=== PATIENT | male | born 1965 | race African-American/Black ===

== ENCOUNTER 2024-06-11 14:54 | Inpatient (IN) | payer BC, OTHER ==
[2024-06-11] MEDS: SODIUM CHLORIDE 0.9% 1,000 ML IV ONE (15:37)
[2024-06-11] MEDS: PANTOPRAZOLE 40 MG/10 ML VIAL IVP STA (15:37)
[2024-06-11 15:53] LABS: Anisocytosis Moderate; Basophils % (A) 0 %; Eosinophils # (A) 0.1 k/uL (0-0.7); Eosinophils % (A) 1 %; HCT 37.7 % (39.0-53.0); HGB 11.5 gm/dL (13.0-17.5); Hypochromasia Marked; Lymphocytes # (A) 1.9 k/uL (1.0-4.8); Lymphocytes % (A) 15 %; MCH 21.6 pg (25.0-35.0); MCHC 30.5 g/dL (31.0-37.0); MCV 70.7 fL (80.0-100.0); Mean Platelet Volume 7.8; Microcytosis Marked; Monocytes # (A) 0.5 k/uL (0-1.0); Monocytes % (A) 4 %; Neutrophils # (A) 10.2 k/uL (1.3-7.7); Neutrophils % (A) 79 %; Platelet Count 477 k/uL (150-450); RBC 5.33 m/uL (4.30-5.90); RDW 22.5 % (11.5-15.5)
[2024-06-11 16:04] LABS: Partial Thromboplastin Time 25.2 sec (22.0-30.0); Prothrombin Time 10.6 sec (10.0-12.5)
[2024-06-11 16:08] LABS: ALT 26 U/L (4-49); African American GFR (CKD) >90 (>60 ml/min/1.73 sqM); Albumin 4.7 g/dL (3.5-5.0); Anion Gap 13 mmol/L; Blood Urea Nitrogen 8 mg/dL (9-20); Calcium 10.1 mg/dL (8.4-10.2); Carbon Dioxide 19 mmol/L (22-30); Chloride 103 mmol/L (98-107); Glucose 105 mg/dL (74-99); Lipase 112 U/L (23-300); Non-African American GFR(CKD) >90 (>60 ml/min/1.73 sqM); Sodium 135 mmol/L (137-145); Total Bilirubin 2.2 mg/dL (0.2-1.3); Total Protein 7.8 g/dL (6.3-8.2)
[2024-06-11 16:11] LABS: AST 55 U/L (17-59); Alkaline Phosphatase 66 U/L (38-126); Magnesium 1.8 mg/dL (1.6-2.3); Potassium 4.4 mmol/L (3.5-5.1)
--- NOTE | 2024-06-11 16:19 | ED ---
GI Bleed HPI - General Chief complaint: GI Bleed Stated complaint: Vomiting/Diarrhea blood Time Seen by Provider: 06/11/24 15:10 Source: patient Mode of arrival: wheelchair Limitations: no limitations - History of Present Illness Initial comments: 59-year-old male with past medical history of A-fib, coronary disease with stent placement, hypertension, GERD who presents to the emergency department reporting vomiting of blood. States that last night he started having pain in his abdomen and throat. He believes he was "poisoned from his sfhlyug-ol-jja" as he ate a piece of pizza that his smkoeck-oo-weo had bought. He began vomiting and having diarrhea which then turned bloody. Admits that the blood in his vomit and stool was bright in coloration. He denies history of GI bleeding. Does not take any blood thinners. Patient does not take any medications. States he is supposed to be on prescribed medications but has not taken them in 2 years. His primary care doctor is in [place]. He did not take anything to alleviate his symptoms. He has never had a colonoscopy. Patient also admits to chest pain. No fevers. No history of ulcers. Patient denies alcohol use. No other alleviating, precipitating modifying factors - Related Data Home Medications Medication Instructions Recorded Confirmed No Known Home Medications 06/11/24 06/11/24 Allergies Allergy/AdvReac Type Severity Reaction Status Date / Time No Known Allergies Allergy Verified 06/11/24 16:07 Review of Systems ROS Statement: Those systems with pertinent positive or pertinent negative responses have been documented in the HPI. ROS Other: All systems not noted in ROS Statement are negative. Past Medical History Past Medical History: Chest Pain / Angina, GERD/Reflux, Hypertension History of Any Multi-Drug Resistant Organisms: None Reported Past Surgical History: No Surgical Hx Reported Past Psychological History: No Psychological Hx Reported Past Alcohol Use History: Daily Past Drug Use History: Marijuana General Exam Limitations: no limitations General appearance: alert, anxious, in distress Head exam: Present: atraumatic, normocephalic, normal inspection Eye exam: Present: normal appearance, PERRL, EOMI. Absent: scleral icterus, conjunctival injection, periorbital swelling ENT exam: Present: normal exam, mucous membranes moist Neck exam: Present: normal inspection. Absent: tenderness, meningismus, lymphadenopathy Respiratory exam: Present: normal lung sounds bilaterally. Absent: respiratory distress, wheezes, rales, rhonchi, stridor Cardiovascular Exam: Present: normal rhythm, tachycardia, normal heart sounds. Absent: systolic murmur, diastolic murmur, rubs, gallop, clicks GI/Abdominal exam: Present: soft, tenderness (Generalized), normal bowel sounds. Absent: distended, guarding, rebound, rigid Extremities exam: Present: normal inspection, full ROM, normal capillary refill. Absent: tenderness, pedal edema, joint swelling, calf tenderness Back exam: Present: normal inspection Neurological exam: Present: alert, oriented X3, CN II-XII intact Psychiatric exam: Present: anxious Skin exam: Present: warm, dry, intact, normal color. Absent: rash Course Vital Signs 06/11/24 06/11/24 06/11/24 14:55 14:57 16:57 Temperature 97.7 F Pulse Rate 108 H 73 68 Respiratory 30 H 26 H 16 Rate Blood Pressure 139/89 160/85 149/60 O2 Sat by Pulse 98 99 98 Oximetry 06/11/24 06/11/24 06/11/24 18:00 21:27 22:00 Temperature 98.1 F Pulse Rate 90 79 80 Respiratory 16 16 20 Rate Blood Pressure 140/83 135/94 138/71 O2 Sat by Pulse 99 98 99 Oximetry Medical Decision Making - Medical Decision Making Was pt. sent in by a medical professional or institution (SUSAN Davis, TEMPORARY OFFICE ASSISTANT, urgent care, hospital, or jail...) When possible be specific @ -No Did you speak to anyone other than the patient for history (EMS, parent, family, police, friend...)? What history was obtained from this source @ -No Did you review nursing and triage notes (agree or disagree)? Why? @ -I reviewed and agree with nursing and triage notes Were old charts reviewed (outside hosp., previous admission, EMS record, old EKG, old radiological studies, urgent care reports/EKG's, jail records)? Report findings @ -No old charts were reviewed Differential Diagnosis (chest pain, altered mental status, abdominal pain women, abdominal pain men, vaginal bleeding, weakness, fever, dyspnea, syncope, headache, dizziness, GI bleed, back pain, seizure, CVA, palpatations, mental health, musculoskeletal)? @ -Differential GI Bleed: Esophageal varices, aortoenteric fistula, Halie-Arreola, gastritis, peptic ulcer disease, diverticulosis, inflammatory bowel disease, hemorrhoids, fissure, colitis, malignancy, Meckel's diverticulum, this is not meant to be an all- inclusive list. EKG interpreted by me (3pts min.). @ -Yes and demonstrates sinus rhythm with a rate of 95. Parable 150. QRS 137. QTc of 433. Right bundle branch block. No acute ST segment elevations X-rays interpreted by me (1pt min.). @ -None done CT interpreted by me (1pt min.). @ -Yes and demonstrates colitis U/S interpreted by me (1pt. min.). @ -None done What testing was considered but not performed or refused? (CT, X-rays, U/S, labs)? Why? @ -None What meds were considered but not given or refused? Why? @ -None Did you discuss the management of the patient with other professionals (professionals i.e. , PA, TEMPORARY OFFICE ASSISTANT, lab, RT, psych nurse, social work msw, tip banding machine operator, teacher, asset protection officer, manager of case)? Give summary @ -Spoke with Dr. Yanez who presents to the ED and evaluate the patient. He is agreeable to consulting on the patient as we do not have GI services Was smoking cessation discussed for >3mins.? @ -No Was critical care preformed (if so, how long)? @ -No Were there social determinants of health that impacted care today? How? (Homelessness, low income, unemployed, alcoholism, drug addiction, transportation, low edu. Level, literacy, decrease access to med. care, senior care, rehab)? @ -Patient has not seen a physician in 2 years Was there de-escalation of care discussed even if they declined (Discuss DNR or withdrawal of care, Hospice)? DNR status @ -No What co-morbidities impacted this encounter? (DM, HTN, Smoking, COPD, CAD, Cancer, CVA, ARF, Chemo, Hep., AIDS, mental health diagnosis, sleep apnea, morbid obesity)? @ -Coronary disease Was patient admitted / discharged? Hospital course, mention meds given and ro [place], prescriptions, significant lab abnormalities, going to OR and other pertinent info. @ -Upon arrival patient seen and evaluated in room 1. Thorough history and physical exam was performed. Rectal exam was performed and shows a scant amount of brown stool. IV was established. Laboratory studies are conducted. Patient does go for CT which shows colitis. Patient is initiated on antibiotics. I spoke with Dr. Yanez who does see the patient in the ER. He was agreeable to consult on the patient as we do not have GI services. Patient does not feel improved. I spoke with Dr. Wadsworth for the admission Undiagnosed new problem with uncertain prognosis? @ -No Drug Therapy requiring intensive monitoring for toxicity (Heparin, Nitro, Insulin, Cardizem)? @ -No Were any procedures done? @ -No Diagnosis/symptom? @ -Acute hematochezia, acute hematemesis, acute colitis Acute, or Chronic, or Acute on Chronic? @ -Acute Uncomplicated (without systemic symptoms) or Complicated (systemic symptoms)? @ -Complicated Side effects of treatment? @ -No Exacerbation, Progression, or Severe Exacerbation? @ -No Poses a threat to life or bodily function? How? (Chest pain, USA, AL, pneumonia, PE, COPD, DKA, ARF, appy, cholecystitis, CVA, Diverticulitis, Homicidal, Suicidal, threat to staff... and all critical care pts) @ -No - Lab Data Result diagrams: 06/12/24 03:55 06/12/24 03:55 Lab Results 06/11/24 06/11/24 06/11/24 Range/Units 15:15 15:17 15:24 WBC 13.0 H (3.8-10.6) k/uL RBC 5.33 (4.30-5.90) m/uL Hgb 11.5 L (13.0-17.5) gm/dL Hct 37.7 L (39.0-53.0) % MCV 70.7 L (80.0-100.0) fL MCH 21.6 L (25.0-35.0) pg MCHC 30.5 L (31.0-37.0) g/dL RDW 22.5 H (11.5-15.5) % Plt Count 477 H (150-450) k/uL MPV 7.8 Neutrophils % 79 % Lymphocytes % 15 % Monocytes % 4 % Eosinophils % 1 % Basophils % 0 % Neutrophils # 10.2 H (1.3-7.7) k/uL Lymphocytes # 1.9 (1.0-4.8) k/uL Monocytes # 0.5 (0-1.0) k/uL Eosinophils # 0.1 (0-0.7) k/uL Basophils # 0.0 (0-0.2) k/uL Hypochromasia Marked Anisocytosis Moderate Microcytosis Marked PT (10.0-12.5) sec INR (<1.2) APTT (22.0-30.0) sec Sodium (137-145) mmol/L Potassium (3.5-5.1) mmol/L Chloride (98-107) mmol/L Carbon Dioxide (22-30) mmol/L Anion Gap mmol/L BUN (9-20) mg/dL Creatinine (0.66-1.25) mg/dL Est GFR (CKD-EPI)AfAm (>60 ml/min/1.73 sqM) Est GFR (CKD-EPI)NonAf (>60 ml/min/1.73 sqM) Glucose (74-99) mg/dL Lactic Ac Sepsis Rflx Plasma Lactic Acid Suresh (0.7-2.0) mmol/L Calcium (8.4-10.2) mg/dL Magnesium (1.6-2.3) mg/dL Total Bilirubin (0.2-1.3) mg/dL AST (17-59) U/L ALT (4-49) U/L Alkaline Phosphatase (38-126) U/L Troponin I (0.000-0.034) ng/mL Total Protein (6.3-8.2) g/dL Albumin (3.5-5.0) g/dL Lipase (23-300) U/L Stool Occult Blood (Negative) Blood Type A Positive Blood Type Confirm A Positive Blood Type Recheck No Previous Record Bld Type Recheck Status CABO Indicated Antibody Screen NEGATIVE Spec Expiration Date 06/14/2024 - 231406/11/24 06/11/24 06/11/24 Range/Units 15:24 15:24 15:24 WBC (3.8-10.6) k/uL RBC (4.30-5.90) m/uL Hgb (13.0-17.5) gm/dL Hct (39.0-53.0) % MCV (80.0-100.0) fL MCH (25.0-35.0) pg MCHC (31.0-37.0) g/dL RDW (11.5-15.5) % Plt Count (150-450) k/uL MPV Neutrophils % % Lymphocytes % % Monocytes % % Eosinophils % % Basophils % % Neutrophils # (1.3-7.7) k/uL Lymphocytes # (1.0-4.8) k/uL Monocytes # (0-1.0) k/uL Eosinophils # (0-0.7) k/uL Basophils # (0-0.2) k/uL Hypochromasia Anisocytosis Microcytosis PT 10.6 (10.0-12.5) sec INR 1.0 (<1.2) APTT 25.2 (22.0-30.0) sec Sodium 135 L (137-145) mmol/L Potassium 4.4 (3.5-5.1) mmol/L Chloride 103 (98-107) mmol/L Carbon Dioxide 19 L (22-30) mmol/L Anion Gap 13 mmol/L BUN 8 L (9-20) mg/dL Creatinine 0.72 (0.66-1.25) mg/dL Est GFR (CKD-EPI)AfAm >90 (>60 ml/min/1.73 sqM) Est GFR (CKD-EPI)NonAf >90 (>60 ml/min/1.73 sqM) Glucose 105 H (74-99) mg/dL Lactic Ac Sepsis Rflx Plasma Lactic Acid Suresh 2.4 H* (0.7-2.0) mmol/L Calcium 10.1 (8.4-10.2) mg/dL Magnesium 1.8 (1.6-2.3) mg/dL Total Bilirubin 2.2 H (0.2-1.3) mg/dL AST 55 (17-59) U/L ALT 26 (4-49) U/L Alkaline Phosphatase 66 (38-126) U/L Troponin I (0.000-0.034) ng/mL Total Protein 7.8 (6.3-8.2) g/dL Albumin 4.7 (3.5-5.0) g/dL Lipase 112 (23-300) U/L Stool Occult Blood (Negative) Blood Type Blood Type Confirm Blood Type Recheck Bld Type Recheck Status Antibody Screen Spec Expiration Date 06/11/24 06/11/24 06/11/24 Range/Units 15:24 16:10 17:24 WBC (3.8-10.6) k/uL RBC (4.30-5.90) m/uL Hgb (13.0-17.5) gm/dL Hct (39.0-53.0) % MCV (80.0-100.0) fL MCH (25.0-35.0) pg MCHC (31.0-37.0) g/dL RDW (11.5-15.5) % Plt Count (150-450) k/uL MPV Neutrophils % % Lymphocytes % % Monocytes % % Eosinophils % % Basophils % % Neutrophils # (1.3-7.7) k/uL Lymphocytes # (1.0-4.8) k/uL Monocytes # (0-1.0) k/uL Eosinophils # (0-0.7) k/uL Basophils # (0-0.2) k/uL Hypochromasia Anisocytosis Microcytosis PT (10.0-12.5) sec INR (<1.2) APTT (22.0-30.0) sec Sodium (137-145) mmol/L Potassium (3.5-5.1) mmol/L Chloride (98-107) mmol/L Carbon Dioxide (22-30) mmol/L Anion Gap mmol/L BUN (9-20) mg/dL Creatinine (0.66-1.25) mg/dL Est GFR (CKD-EPI)AfAm (>60 ml/min/1.73 sqM) Est GFR (CKD-EPI)NonAf (>60 ml/min/1.73 sqM) Glucose (74-99) mg/dL Lactic Ac Sepsis Rflx Y Plasma Lactic Acid Suresh (0.7-2.0) mmol/L Calcium (8.4-10.2) mg/dL Magnesium (1.6-2.3) mg/dL Total Bilirubin (0.2-1.3) mg/dL AST (17-59) U/L ALT (4-49) U/L Alkaline Phosphatase (38-126) U/L Troponin I <0.012 (0.000-0.034) ng/mL Total Protein (6.3-8.2) g/dL Albumin (3.5-5.0) g/dL Lipase (23-300) U/L Stool Occult Blood Positive (Negative) Blood Type Blood Type Confirm Blood Type Recheck Bld Type Recheck Status Antibody Screen Spec Expiration Date Disposition Clinical Impression: GI bleed, Hematochezia, Hematemesis Disposition: [facility]ITTED [facility] Condition: Stable Is patient prescribed a controlled substance at d/c from ED?: No Decision to Admit Reason: Admit from EC Decision Date: 06/11/24 Decision Time: 20:53
[2024-06-11] MEDS: ONDANSETRON 4 MG/2 ML VIAL IVP STA (17:21)
[2024-06-11] MEDS: MORPHINE SULFATE 4 MG/ML SYRINGE IVP STA (18:02)
--- NOTE | 2024-06-11 18:12 | CT ---
EXAMINATION TYPE: CT ChestAbdPelvis w con DATE OF EXAM: 06/11/2024 INDICATION: vomiting stool/blood starting this morning COMPARISON: 04/28/2014 CT abdomen and pelvis CT DLP: 762.3 mGycm CONTRAST: Performed without Oral Contrast and with IV Contrast, patient injected with 100 ml mL of Isovue 300. TECHNIQUE: Axial images at 5 mm thick sections. Reconstructed images in the coronal plane. Delayed images through the kidneys. FINDINGS: CT CHEST: Portion of the thyroid visualized is normal. No suspicious lung nodules or focal infiltrates are present. No enlarged mediastinal or hilar adenopathy is evident. The ascending aorta diameter at the level of the main pulmonary artery is 3.8 cm. The main pulmonary artery diameter at the bifurcation is 2.9 cm. Some mild coronary artery calcification may be present . CT ABDOMEN: Liver: Normal Spleen: Normal Pancreas: Normal Adrenal glands: The adrenal glands are normal. Gallbladder: Normal Kidneys: No masses are evident. No hydronephrosis is present. No cysts are present. Punctate renal calcification is in the mid left kidney without obstruction. Aorta: Vascular calcification is within the aorta. Inferior vena cava: Normal. CT PELVIS: Loops of bowel within the abdomen and pelvis are normal. Fluid-filled small bowel loops are withi n the lower pelvis. X line there is some mild thickening through the splenic flexure to the mid desce nding colon. Colitis is likely present. Appendix: Normal as visualized. Urinary bladder: Normal. Genitourinary structures: Prostate is prominent Osseous structures: No suspicious lytic or sclerotic lesions. IMPRESSION: 1. Some wall thickening and mild colitis within the splenic flexure to the mid descending colon. 2. Mild ileus may be within the pelvis. 3. Nonobstructing punctate left renal stone
--- NOTE | 2024-06-11 20:21 | P.GSCN ---
History of Present Illness Consult date: 06/11/24 Reason for Consult: GI bleed History of present illness: 59-year-old male came to the hospital with complaints of vomiting blood and diarrhea with blood in it. No history of similar events in the past. Denies ulcer disease. Admits to history of alcohol abuse. Not currently he states. Patient has not had previous endoscopy. No active bleeding since ER visit. Describes history of GERD. Hemoglobin 11.5, white blood cell count 13, lactic acid slightly elevated. Patient was heme positive with no blood on rectal exam per ER staff. CAT scan was performed showing some thickening of the left colon consistent with possible mild colitis. Patient describing mild abdominal discomfort. Review of Systems The patient denies any acute changes in vision or hearing, no dysphagia or odynophagia, no chest pain or shortness of breath, no dysuria or hematuria, no headache, no runny nose, no unexplained weight loss Past Medical History Past Medical History: Chest Pain / Angina, GERD/Reflux, Hypertension History of Any Multi-Drug Resistant Organisms: None Reported Past Surgical History: No Surgical Hx Reported Past Psychological History: No Psychological Hx Reported Past Alcohol Use History: Daily Past Drug Use History: Marijuana Medications and Allergies Home Medications Medication Instructions Recorded Confirmed Type No Known Home Medications 06/11/24 06/11/24 History Allergies Allergy/AdvReac Type Severity Reaction Status Date / Time No Known Allergies Allergy Verified 06/11/24 16:07 Surgical - Exam Vital Signs Temp Pulse Resp BP Pulse Ox 97.7 F 108 H 30 H 139/89 98 06/11/24 14:55 06/11/24 14:55 06/11/24 14:55 06/11/24 14:55 06/11/24 14:55 Physical exam: General: Well-developed, well-nourished HEENT: Normocephalic, sclerae nonicteric Abdomen: Mild diffuse tenderness nondistended Extremities: No edema Neuro: Alert and oriented Results - Labs 06/11/24 15:24 06/11/24 15:24 Abnormal Lab Results - Last 24 Hours (Table) 06/11/24 06/11/24 06/11/24 Range/Units 15:24 15:24 15:24 WBC 13.0 H (3.8-10.6) k/uL Hgb 11.5 L (13.0-17.5) gm/dL Hct 37.7 L (39.0-53.0) % MCV 70.7 L (80.0-100.0) fL MCH 21.6 L (25.0-35.0) pg MCHC 30.5 L (31.0-37.0) g/dL RDW 22.5 H (11.5-15.5) % Plt Count 477 H (150-450) k/uL Neutrophils # 10.2 H (1.3-7.7) k/uL Sodium 135 L (137-145) mmol/L Carbon Dioxide 19 L (22-30) mmol/L BUN 8 L (9-20) mg/dL Glucose 105 H (74-99) mg/dL Plasma Lactic Acid Suresh 2.4 H* (0.7-2.0) mmol/L Total Bilirubin 2.2 H (0.2-1.3) mg/dL Diabetes panel 06/11/24 Range/Units 15:24 Sodium 135 L (137-145) mmol/L Potassium 4.4 (3.5-5.1) mmol/L Chloride 103 (98-107) mmol/L Carbon Dioxide 19 L (22-30) mmol/L BUN 8 L (9-20) mg/dL Creatinine 0.72 (0.66-1.25) mg/dL Glucose 105 H (74-99) mg/dL Calcium 10.1 (8.4-10.2) mg/dL AST 55 (17-59) U/L ALT 26 (4-49) U/L Alkaline Phosphatase 66 (38-126) U/L Total Protein 7.8 (6.3-8.2) g/dL Albumin 4.7 (3.5-5.0) g/dL Calcium panel 06/11/24 Range/Units 15:24 Calcium 10.1 (8.4-10.2) mg/dL Albumin 4.7 (3.5-5.0) g/dL Pituitary panel 06/11/24 Range/Units 15:24 Sodium 135 L (137-145) mmol/L Potassium 4.4 (3.5-5.1) mmol/L Chloride 103 (98-107) mmol/L Carbon Dioxide 19 L (22-30) mmol/L BUN 8 L (9-20) mg/dL Creatinine 0.72 (0.66-1.25) mg/dL Glucose 105 H (74-99) mg/dL Calcium 10.1 (8.4-10.2) mg/dL Adrenal panel 06/11/24 Range/Units 15:24 Sodium 135 L (137-145) mmol/L Potassium 4.4 (3.5-5.1) mmol/L Chloride 103 (98-107) mmol/L Carbon Dioxide 19 L (22-30) mmol/L BUN 8 L (9-20) mg/dL Creatinine 0.72 (0.66-1.25) mg/dL Glucose 105 H (74-99) mg/dL Calcium 10.1 (8.4-10.2) mg/dL Total Bilirubin 2.2 H (0.2-1.3) mg/dL AST 55 (17-59) U/L ALT 26 (4-49) U/L Alkaline Phosphatase 66 (38-126) U/L Total Protein 7.8 (6.3-8.2) g/dL Albumin 4.7 (3.5-5.0) g/dL Assessment and Plan (1) GI bleed Narrative/Plan: 59-year-old male with presentation of upper and lower GI bleed. Will proceed with upper endoscopy tomorrow. CAT scan findings may represent ischemic colitis. If no active ulcer disease seen and bleeding rectally diminishes would plan outpatient colonoscopy. Begin antibiotics for mild colitis. Recheck labs tomorrow. Keep n.p.o. for now. Current Visit: Yes Status: Acute Code(s): K92.2 - GASTROINTESTINAL HEMORRHAGE, UNSPECIFIED SNOMED Code(s): 96160173
[2024-06-11] MEDS ORDERED: NALOXONE 0.4 MG/ML 1 ML VIAL IV PRN (20:53)
[2024-06-11] MEDS ORDERED: ONDANSETRON 4 MG/2 ML VIAL IVP PRN (20:53)
[2024-06-11] MEDS ORDERED: ACETAMINOPHEN TAB 325 MG TAB PO PRN (20:53)
[2024-06-11] MEDS: LEVOFLOXACIN 500MG-D5W PMX 500 MG in DEXTROSE/WATER 1 100ML.BAG IVPB STA (22:32)
--- NOTE | 2024-06-11 23:46 | P.HPIM ---
History of Present Illness H&P Date: 06/11/24 Chief Complaint: GI bleed Patient is a 59-year-old male with atrial fibrillation (not on anticoagulant), CAD with stent placement, hypertension, GERD presents to the emergency department with complaint of hematemesis and blood in the stool. He states that this happened last night where he suddenly woke up with excruciating abdominal pain followed by multiple episodes of vomiting blood shortly followed by multiple bowel movements with blood present. He describes the vomit as a light-colored red, and the stool as a bright red appearance. Patient admits he was diaphoretic and he rated his abdominal pain a 10/10 across his lower abd. He denies any history of abdominal surgery, endoscopy . patient claims he had recent colonoscopy within past 2 years, and polyps were found He denies any history of peptic ulcer disease or chronic NSAID use. He did take one ibuprofen last night for headache. He states he has not taken any of his prescribed medications within the past 2 years.(he is supposed to be taking plavix for CAD and PAD) He did not take anything to alleviate the symptoms. States he had chest pain following episode, however denies any current chest pain. Denies any cough, fever, syncope. He now reports having bloody bowel movement in the ED minutes before my arrival for evaluation Review of systems: Pertinent positives and negatives as discussed in HPI, a complete review of systems was performed and all other systems are negative. Social history: Tobacco: Former smoker of 40 years 2 pack a day Alcohol: Drinks every day says he quit recently Recreational drugs: Marijuana Travel: No recent travel Occupation: Did not obtain Physical examination: Vitals: T98.1 F, MO 80, RR 20, BP 138/71, O2 sat 99% on room air General: non toxic, moderate distress, appears at stated age, normal weight Derm: no unusual rashes/lesions, warm Head: atraumatic, normocephalic, symmetric Eyes: EOMI, anicteric sclera, pupils equal round reactive to light ENT: Nose and ears atraumatic Mouth: no lip lesion, mucus membranes moist Cardiovascular: S1S2 reg, no murmur, positive dorsalis pedis pulse bilateral, no edema Lungs: CTA bilateral, no rhonchi, no rales, no accessory muscle use Abdominal: soft, diffusely tender to palpation, +ve Rebound tenderness Bowel sounds positive no guarding Ext: muscle strength 5 out of 5 in all 4 extremities grossly, no gross muscle atrophy, no contractures, Neuro: CN II-XI grossly intact, no gross focal neuro deficits Psych: Alert and oriented to person, place, and time Assessment/Plan: Patient is a 59-year-old male with atrial fibrillation (not on anticoagulant), CAD with stent placement not taking his plavix for 2 years now, hypertension, GERD presents to the emergency department with complaint of hematemesis and blood in the stool. ED documentation reviewed and case discussed with ED provider. []The patient is admitted with an anticipated greater than than 2 mi dnight stay for evaluation of GI bleed. #. Gastrointestinal bleed Likely lower GI bleed with suspected ischemic colitis versus upper GI bleed Patient with crampy abdominal pain CBC showed microcytic anemia likely due to acute on chronic blood loss, Hgb 11.5 MCV 70.7 BUN:Cr < 30 making upper GI bleed less likely Coagulation studies unremarkable Lactic acid downtrending 2.4 => 1.0 Urine drug screen ordered Stool occult blood positive CT abdomen displayed wall thickening and mild colitis within the splenic flexure to mid descending colon, mild ileus may be within the pelvis Pain management: Acetaminophen tab 650 mg PO q6hr PRN, Dilaudid 0.5 mg IVP q3hr PRN IV Protonix 40 mg IVP daily, s/p Protonix one time 80 mg IVP Zofran 4 mg IVP every q8hr PRN for nausea/vomiting Monitor bowel movement for blood Keep patient NPO Follow-up labs in the morning Surgery consulted, note reviewed. Plan for upper endoscopy tomorrow IVF hydration with normal saline 0.9% s/p 1 L bolus , continue with 130cc per hour CBC q6hr transfuse for hgb <7 general surgery consult , recommended starting antibiotics, continue with [id number] mg IVPB daily and flagyl 500 mg IVPB q 8 hr INR 1.0 #. Microcytic anemia Hgb 11.5, MCV 70.7 Likely due to acute blood loss Transfuse if Hgb is <7 Continue to monitor CBC #. History of atrial fibrillation (not on anticoagulant) Monitor on telemetry No known home medications Consult cardiology #. Leukocytosis, neutrophilic predominant with no left shift Suspected colitis per CT abdomen Given prophylactic IV metronidazole 500 mg by ED Continue to monitor CBC #. Chronic hypertension No known home medications Monitor blood pressure per floor protocol #. GERD IV Protonix 40 mg IVP daily #. Thrombocytosis Platelet 477 Likely due to chronic alcohol abuse #. History of chronic alcohol abuse Former everyday drinker, states last drink was years ago Will monitor for any withdrawal symptoms #. Hyperbilirubinemia Likely due to previous alcohol use DVT prophylaxis: mechanical SCDs due to GI bleeding F: NS 0.9 % at 130 cc per hour E: Replete electrolytes as needed N: NPO A: Patient ambulatory, fall precaution CODE STATUS: Full code Past Medical History Past Medical History: Chest Pain / Angina, GERD/Reflux, Hypertension History of Any Multi-Drug Resistant Organisms: None Reported Past Surgical History: No Surgical Hx Reported Past Psychological History: No Psychological Hx Reported Past Alcohol Use History: Daily Past Drug Use History: Marijuana Medications and Allergies Home Medications Medication Instructions Recorded Confirmed Type No Known Home Medications 06/11/24 06/11/24 History Allergies Allergy/AdvReac Type Severity Reaction Status Date / Time No Known Allergies Allergy Verified 06/11/24 16:07 Physical Exam Vitals: Vital Signs Temp Pulse Resp BP Pulse Ox 06/11/24 21:27 98.1 F 79 16 135/94 98 06/11/24 18:00 90 16 140/83 99 06/11/24 16:57 68 16 149/60 98 06/11/24 14:57 73 26 H 160/85 99 06/11/24 14:55 97.7 F 108 H 30 H 139/89 98 Intake and Output 06/11/24 06/11/24 06/11/24 06:59 14:59 22:59 Other: Weight 68.039 kg Results CBC & Chem 7: 06/11/24 15:24 06/11/24 15:24 Labs: Abnormal Lab Results - Last 24 Hours (Table) 06/11/24 06/11/24 06/11/24 Range/Units 15:24 15:24 15:24 WBC 13.0 H (3.8-10.6) k/uL Hgb 11.5 L (13.0-17.5) gm/dL Hct 37.7 L (39.0-53.0) % MCV 70.7 L (80.0-100.0) fL MCH 21.6 L (25.0-35.0) pg MCHC 30.5 L (31.0-37.0) g/dL RDW 22.5 H (11.5-15.5) % Plt Count 477 H (150-450) k/uL Neutrophils # 10.2 H (1.3-7.7) k/uL Sodium 135 L (137-145) mmol/L Carbon Dioxide 19 L (22-30) mmol/L BUN 8 L (9-20) mg/dL Glucose 105 H (74-99) mg/dL Plasma Lactic Acid Suresh 2.4 H* (0.7-2.0) mmol/L Total Bilirubin 2.2 H (0.2-1.3) mg/dL Assessment and Plan Assessment: I saw and Examined the patient independently discussed the case with the resident and agree with documented H&P and assessment and plan which was amended as needed in blue font
[2024-06-11] MEDS: HYDROmorphone 0.5 MG/0.5 ML SYRINGE IVP PRN (23:53)
[2024-06-11] MEDS: metroNIDAZOLE-NS PMX 500 MG in SALINE 1 100ML.BAG IVPB SCH (23:58)
[2024-06-12] MEDS: SODIUM CHLORIDE 0.9% 1,000 ML IV SCH (00:05)
[2024-06-12 00:20] LABS: Amphetamine Screen,Urine Detected (NotDetected); Barbiturate Screen,Urine Not Detected (NotDetected); Benzodiazepines Screen,Urine Not Detected (NotDetected); Cocaine Screen,Urine Not Detected (NotDetected); Methadone Screen, Urine Not Detected (NotDetected); Opiate Screen,Urine Detected (NotDetected); Oxycodone Screen, Urine Not Detected (NotDetected); Phencyclidine Screen,Urine Not Detected (NotDetected); Tricyclic Antidepressant,Urine Not Detected (NotDetected); Urn Cannabinoid Scrn Detected (NotDetected)
[2024-06-12 00:55] LABS: Anisocytosis Moderate; HCT 33.6 % (39.0-53.0); HGB 10.2 gm/dL (13.0-17.5); Hypochromasia Marked; MCH 22.1 pg (25.0-35.0); MCHC 30.4 g/dL (31.0-37.0); MCV 72.4 fL (80.0-100.0); Mean Platelet Volume 8.2; Microcytosis Marked; Platelet Count 450 k/uL (150-450); RBC 4.64 m/uL (4.30-5.90); RDW 22.7 % (11.5-15.5); WBC 11.7 k/uL (3.8-10.6)
[2024-06-12 06:50] LABS: Anisocytosis Moderate; Basophils % (A) 0 %; Eosinophils # (A) 0.2 k/uL (0-0.7); Eosinophils % (A) 2 %; HCT 34.4 % (39.0-53.0); HGB 10.2 gm/dL (13.0-17.5); Hypochromasia Marked; Lymphocytes # (A) 2.2 k/uL (1.0-4.8); Lymphocytes % (A) 20 %; MCH 21.9 pg (25.0-35.0); MCHC 29.7 g/dL (31.0-37.0); MCV 73.8 fL (80.0-100.0); Mean Platelet Volume 9.4; Microcytosis Marked; Monocytes # (A) 0.7 k/uL (0-1.0); Monocytes % (A) 6 %; Neutrophils # (A) 7.7 k/uL (1.3-7.7); Neutrophils % (A) 71 %; Platelet Count 411 k/uL (150-450); RBC 4.66 m/uL (4.30-5.90); RDW 23.2 % (11.5-15.5); WBC 10.9 k/uL (3.8-10.6)
[2024-06-12] MEDS: PANTOPRAZOLE 40 MG/10 ML VIAL IVP SCH ×2 (08:22→22:09)
[2024-06-12 09:02] LABS: Blood Urea Nitrogen 5.6 mg/dL (9.0-27.0); Calcium 8.9 mg/dL (8.7-10.3); Carbon Dioxide 23.2 mmol/L (21.6-31.8); Chloride 105 mmol/L (96-109); Glucose 96 mg/dL (70-110); Potassium 3.7 mmol/L (3.5-5.5); Sodium 137 mmol/L (135-145)
[2024-06-12] MEDS ORDERED: PROPOFOL 10 MG/ML 20 ML VIAL IV ONE (14:28)
[2024-06-12] MEDS: IV FLUID CONTINUATION 1,000 ML IV ONE (14:30)
--- NOTE | 2024-06-12 14:42 | P.PCN ---
Date of Procedure: 06/12/24 Procedure(s) Performed: Preoperative Dx: Upper GI bleed Postoperative Dx: Mild duodenitis, mild gastritis, small hiatal hernia Procedure: EGD with Bx Anesthesia: Sedation Endoscopist: Dr. Yanez Specimens: Duodenum, antrum Endoscopic Procedure: The patient was on the endoscopy table in the left decubitus position. The Olympus gastroscope was inserted into the oropharynx and passed under direct visualization to the region of the third portion of the duodenum. From that point the scope was slowly withdrawn inspecting all surfaces carefully. There was mild duodenitis present without ulcerations or evidence of bleeding. Biopsy of the duodenum took place. Pylorus was widely patent. Stomach was inspected. Mild gastritis was present. A biopsy of the antrum took place. Retroflexion revealed a small sliding hiatal hernia measuring 1 cm. No evidence of esophageal varices or gastric varices were seen. The patient's esophagus was examined in its entirety. No inflammatory changes or neoplastic changes were seen. The patient was then taken to the recovery room in stable condition per anesthesia guidelines. Recommendations: Patient still having abdominal discomforts. Continue antibiotics. Begin full liquid diet. Will follow.
--- NOTE | 2024-06-12 16:39 | P.PN ---
Subjective Progress Note Date: 06/12/24 Subjective: Patient seen and examined at the bedside. Patient is still complaining of mild lower abdominal pain which he states is improving and states is better than how he presented to the ED. No active bleeding. Denies hemoptysis, hemoptysis, melena or bright red blood per rectum. All Systems reviewed and pertinent positives and negatives noted in HPI, all other symptoms are negative Objective: Vital signs reviewed. General: non toxic, no distress, appears at stated age, normal weight Derm: no unusual rashes/lesions, warm Head: atraumatic, normocephalic, symmetric Eyes: EOMI, no lid lag, anicteric sclera, pupils equal round reactive to light ENT: Nose and ears atraumatic Neck: No cervical lymphadenopathy, trachea midline, supple Mouth: no lip lesion, mucus membranes moist Cardiovascular: S1S2 reg, no murmur, positive dorsalis pedis pulse bilateral, no edema Lungs: CTA bilateral, no rhonchi, no rales, no accessory muscle use Abdominal: Mildly distended, mild tenderness to touch. No rebound tenderness. Bowel sounds positive. No guarding soft. Ext: muscle strength 5 out of 5 in all 4 extremities grossly, no gross muscle atrophy, no contractures, Neuro: CN II-XI grossly intact, no gross focal neuro deficits Psych: Alert, oriented, appropriate affect Data reviewed today: Labs: WBC 10.9, hemoglobin 10.2, MCV 73.8, platelet 411, sodium 137, potassium 3.7, creatinine 0.8 Images: No new imaging Assessment and Plan: 59-year-old male with A-fib (not on anticoagulant), CAD with stent placement, hypertension, GERD presented to the ER complaining of hematemesis and blood in the stool. Patient is not taking aspirin and Plavix. Patient used amphetamine and methamphetamine prior to onset of symptoms. CT abdomen reveals mild colitis within the splenic flexure. Patient admitted for GI bleeding, likely ischemic colitis. Surgery consulted. EGD is is remarkable for mild duodenitis and gastritis but no gastric ulcers or neoplastic changes with no source of bleeding noted. # Acute upper and lower gastrointestinal bleeding #Microcytic anemia likely due to acute blood loss #Suspected ischemic colitis versus infectious colitis #Leukocytosis #Duodenitis and gastritis #Lactic acidosis, resolved #Polysubstance abuse, although patient denies No active bleeding CT abdomen reveals mild colitis within the splenic flexure Surgery on board EGD is remarkable for mild duodenitis and gastritis but no gastric ulcers or neoplastic changes with no source of bleeding noted. Coagulation studies unremarkable; INR 1.0 Lactic acid downtrending 2.4 => 1.0 Urine drug screen positive for opiate, amphetamine and methamphetamine Pain management: Acetaminophen tab 650 mg PO q6hr PRN, Dilaudid 0.5 mg IVP q3hr PRN Increased IV Protonix 40 mg IVP twice daily Zofran 4 mg IVP every q8hr PRN for nausea/vomiting Monitor bowel movement for blood Keep patient NPO Follow-up labs in the morning IV normal saline at 130 cc/h Continue monitor hemoglobin; transfuse if hemoglobin less than 7 continue with levofloxacin 750 mg IVPB daily and flagyl 500 mg IVPB q 8 hr #History of atrial fibrillation (not on anticoagulant) Monitor on telemetry No known home medications #Chronic hypertension No known home medications Monitor blood pressure per floor protocol #GERD IV Protonix 40 mg IVP twice daily #Thrombocytosis, reactive, resolved #History of chronic alcohol abuse Former everyday drinker, states last drink was years ago Will monitor for any withdrawal symptom F: IV normal saline at 130 cc/h E: Replete as needed N: N.p.o. A: Ambulatory DVT ppx: Mechanical SCDs due to GI bleeding Code Status: Full code Anticipated discharge place: Pending clinical course Anticipated discharge date: Pending clinical course I have seen and evaluated the patient today. Discussed with the resident and agree with the residents finding and plan as documented in the resident's note. Changes highlighted in blue font. Objective - Vital Signs Vital signs: Vital Signs Temp 98.3 F 06/12/24 14:55 Pulse 62 06/12/24 14:55 Resp 22 06/12/24 14:55 BP 120/69 06/12/24 14:55 Pulse Ox 98 06/12/24 14:55 FiO2 Intake & Output 06/11/24 06/12/24 06/12/24 18:59 06:59 18:59 Intake Total 970 100 Output Total 1 Balance 969 100 Weight 68.039 kg 68.039 kg Intake: IV 100 Intake, IV Titration 850 Amount Levofloxacin 500Mg-D5w 100 Pmx 500 mg In Dextrose/ Water 1 100ml.bag @ 100 mls/hr IVPB ONCE STA Rx#: [id number] Sodium Chloride 0.9% 1, 650 000 ml @ 130 mls/hr IV . Q7H42M [facility] Rx#:[id number]-NS PMX 500 100 mg In Saline 1 100ml.bag @ 100 mls/hr IVPB Q8HR [facility] Rx#:[id number] Oral 120 Output: Stool 1 Other: # Voids 2 - Labs CBC & Chem 7: 06/12/24 03:55 06/12/24 03:55 Labs: Abnormal Lab Results - Last 24 Hours (Table) 06/11/24 06/11/24 06/11/24 Range/Units 15:24 15:24 15:24 WBC 13.0 H (3.8-10.6) k/uL Hgb 11.5 L (13.0-17.5) gm/dL Hct 37.7 L (39.0-53.0) % MCV 70.7 L (80.0-100.0) fL MCH 21.6 L (25.0-35.0) pg MCHC 30.5 L (31.0-37.0) g/dL RDW 22.5 H (11.5-15.5) % Plt Count 477 H (150-450) k/uL Neutrophils # 10.2 H (1.3-7.7) k/uL Sodium 135 L (137-145) mmol/L Carbon Dioxide 19 L (22-30) mmol/L BUN 8 L (9-20) mg/dL BUN/Creatinine Ratio (12.00-20.00) Ratio Glucose 105 H (74-99) mg/dL Plasma Lactic Acid Suresh 2.4 H* (0.7-2.0) mmol/L Total Bilirubin 2.2 H (0.2-1.3) mg/dL Urine Opiates Screen (NotDetected) Ur Amphetamines Screen (NotDetected) U Methamphetamines Scrn (NotDetected) U Marijuana (THC) Screen (NotDetected) 06/11/24 06/12/24 06/12/24 Range/Units 23:47 00:35 03:55 WBC 11.7 H 10.9 H (3.8-10.6) k/uL Hgb 10.2 L 10.2 L (13.0-17.5) gm/dL Hct 33.6 L 34.4 L (39.0-53.0) % MCV 72.4 L 73.8 L (80.0-100.0) fL MCH 22.1 L 21.9 L (25.0-35.0) pg MCHC 30.4 L 29.7 L (31.0-37.0) g/dL RDW 22.7 H 23.2 H (11.5-15.5) % Plt Count (150-450) k/uL Neutrophils # (1.3-7.7) k/uL Sodium (137-145) mmol/L Carbon Dioxide (22-30) mmol/L BUN (9-20) mg/dL BUN/Creatinine Ratio (12.00-20.00) Ratio Glucose (74-99) mg/dL Plasma Lactic Acid Suresh (0.7-2.0) mmol/L Total Bilirubin (0.2-1.3) mg/dL Urine Opiates Screen Detected H (NotDetected) Ur Amphetamines Screen Detected H (NotDetected) U Methamphetamines Scrn Detected H (NotDetected) U Marijuana (THC) Screen Detected H (NotDetected) 06/12/24 Range/Units 03:55 WBC (3.8-10.6) k/uL Hgb (13.0-17.5) gm/dL Hct (39.0-53.0) % MCV (80.0-100.0) fL MCH (25.0-35.0) pg MCHC (31.0-37.0) g/dL RDW (11.5-15.5) % Plt Count (150-450) k/uL Neutrophils # (1.3-7.7) k/uL Sodium (137-145) mmol/L Carbon Dioxide (22-30) mmol/L BUN 5.6 L (9-20) mg/dL BUN/Creatinine Ratio 7.00 L (12.00-20.00) Ratio Glucose (74-99) mg/dL Plasma Lactic Acid Suresh (0.7-2.0) mmol/L Total Bilirubin (0.2-1.3) mg/dL Urine Opiates Screen (NotDetected) Ur Amphetamines Screen (NotDetected) U Methamphetamines Scrn (NotDetected) U Marijuana (THC) Screen (NotDetected)
[2024-06-12] MEDS: LEVOFLOXACIN 750MG-D5W PMX 750 MG in DEXTROSE/WATER 1 150ML.BAG IVPB SCH (16:59)
[2024-06-13 04:19] LABS: Anisocytosis Moderate; Basophils # (A) 0.1 k/uL (0-0.2); Basophils % (A) 1 %; Eosinophils # (A) 0.2 k/uL (0-0.7); Eosinophils % (A) 2 %; HCT 31.5 % (39.0-53.0); HGB 9.2 gm/dL (13.0-17.5); Hypochromasia Marked; Lymphocytes # (A) 1.9 k/uL (1.0-4.8); Lymphocytes % (A) 21 %; MCH 21.6 pg (25.0-35.0); MCHC 29.1 g/dL (31.0-37.0); MCV 74.1 fL (80.0-100.0); Mean Platelet Volume 7.9; Microcytosis Marked; Monocytes # (A) 0.6 k/uL (0-1.0); Monocytes % (A) 7 %; Neutrophils # (A) 6.1 k/uL (1.3-7.7); Neutrophils % (A) 67 %; Platelet Count 396 k/uL (150-450); RBC 4.26 m/uL (4.30-5.90); RDW 22.5 % (11.5-15.5)
[2024-06-13 04:31] LABS: African American GFR (CKD) >90 (>60 ml/min/1.73 sqM); Anion Gap 9 mmol/L; Blood Urea Nitrogen 5 mg/dL (9-20); Calcium 9.1 mg/dL (8.4-10.2); Carbon Dioxide 23 mmol/L (22-30); Chloride 104 mmol/L (98-107); Glucose 86 mg/dL (74-99); Non-African American GFR(CKD) >90 (>60 ml/min/1.73 sqM); Potassium 4.2 mmol/L (3.5-5.1); Sodium 136 mmol/L (137-145)
--- NOTE | 2024-06-13 11:38 | P.PN ---
Subjective Progress Note Date: 06/13/24 CHIEF COMPLAINT: Upper GI bleed HISTORY OF PRESENT ILLNESS: Patient status post EGD yesterday with results reporting mild duodenitis, mild gastritis and a small hiatal hernia. Biopsies were done. Patient continues to complain of pain in the left lower quadrant. He does report the pain is less than on admission. He has had no further bowel movements. Denies any nausea or vomiting. Tolerating full liquids. Has had no further bleeding. Hemoglobin is down from 10.2-9.2. Vital stable. PHYSICAL EXAM: VITAL SIGNS: Reviewed. GENERAL: no acute distress. ABDOMEN: Soft. Nondistended. tender LLQ with palpation NEUROLOGIC: Alert and oriented. Cranial nerves II through XII grossly intact. ASSESSMENT: 1. Ischemic colitis 2. Status post EGD revealing mild duodenitis, mild gastritis and small hiatal hernia 3. History of daily EtOH use PLAN: -Continue antibiotics for ischemic colitis -Continue to monitor -Continue to monitor hemoglobin -Continue to monitor for any signs or symptoms of bleeding -Continue full liquid diet -Continue IV Protonix Physician Night Clerk Auditor note has been reviewed by physician. Signing provider agrees with the documented findings, assessment, and plan of care. I have personally seen and examined the patient, reviewed the [employer] /PAs history, exam and MDM and agree with the assessment and plan as written. Based on total visit time, I have performed more than 50% of the visit. As above: Patient says his pain is improved. Tolerating full liquids. No rectal bleeding. No bowel movements. Continue full liquids for now. Continue antibiotics. Advance diet as pain improves. Objective - Vital Signs Vital signs: Vital Signs Temp 98.1 F 06/13/24 07:53 Pulse 76 06/13/24 07:53 Resp 14 06/13/24 07:53 BP 134/74 06/13/24 07:53 Pulse Ox 97 06/13/24 07:53 FiO2 Intake & Output 06/12/24 06/13/24 06/13/24 18:59 06:59 18:59 Intake Total 640 Output Total 1250 1600 Balance 640 -1250 -1600 Intake: IV 100 Oral 540 Output: Urine 1250 1600 - Labs CBC & Chem 7: 06/13/24 03:32 06/13/24 03:32 Labs: Abnormal Lab Results - Last 24 Hours (Table) 06/13/24 06/13/24 Range/Units 03:32 03:32 RBC 4.26 L (4.30-5.90) m/uL Hgb 9.2 L (13.0-17.5) gm/dL Hct 31.5 L (39.0-53.0) % MCV 74.1 L (80.0-100.0) fL MCH 21.6 L (25.0-35.0) pg MCHC 29.1 L (31.0-37.0) g/dL RDW 22.5 H (11.5-15.5) % Sodium 136 L (137-145) mmol/L BUN 5 L (9-20) mg/dL
[2024-06-13 12:28] LABS: Reticulocyte % 2.4 % (0.5-2.0)
--- NOTE | 2024-06-13 15:59 | P.PN ---
Subjective Progress Note Date: 06/13/24 Subjective: Patient seen and examined at the bedside. Patient is still complaining of mild lower abdominal pain which he states is improving and states is better than how he presented to the ED. No active bleeding. Denies hemoptysis, hemoptysis, melena or bright red blood per rectum. All Systems reviewed and pertinent positives and negatives noted in HPI, all other symptoms are negative Objective: Vital signs reviewed. General: non toxic, no distress, appears at stated age, normal weight Derm: no unusual rashes/lesions, warm Head: atraumatic, normocephalic, symmetric Eyes: EOMI, no lid lag, anicteric sclera, pupils equal round reactive to light ENT: Nose and ears atraumatic Neck: No cervical lymphadenopathy, trachea midline, supple Mouth: no lip lesion, mucus membranes moist Cardiovascular: S1S2 reg, no murmur, positive dorsalis pedis pulse bilateral, no edema Lungs: CTA bilateral, no rhonchi, no rales, no accessory muscle use Abdominal: Mildly distended, mild tenderness to touch. No rebound tenderness. Bowel sounds positive. No guarding soft. Ext: muscle strength 5 out of 5 in all 4 extremities grossly, no gross muscle atrophy, no contractures, Neuro: CN II-XI grossly intact, no gross focal neuro deficits Psych: Alert, oriented, appropriate affect Data reviewed today: Labs: WBC 9.0, hemoglobin 9.2, hematocrit 31.5, MCV 74.1, platelet count 396, reticulocyte count 2.4 Sodium 136, potassium 4.2, chloride 104, bicarb 23, BUN 5, creatinine 0.72, glucose 96, calcium 9.1 Images: No new imaging Assessment and Plan: 59-year-old male with A-fib (not on anticoagulant), CAD with stent placement, hypertension, GERD presented to the ER complaining of hematemesis and blood in the stool. Patient is not taking aspirin and Plavix. Patient used amphetamine and methamphetamine prior to onset of symptoms. CT abdomen reveals mild colitis within the splenic flexure. Patient admitted for GI bleeding, likely ischemic colitis. Surgery consulted. EGD is is remarkable for mild duodenitis and gastritis but no gastric ulcers or neoplastic changes with no source of bleeding noted. # Acute upper and lower gastrointestinal bleeding #Microcytic anemia likely due to acute blood loss #Suspected ischemic colitis versus infectious colitis #Leukocytosis, resolved #Duodenitis and gastritis #Lactic acidosis, resolved #Polysubstance abuse, although patient denies No active bleeding Hemoglobin 9.2 Continue monitor hemoglobin; transfuse if hemoglobin less than 7 CT abdomen reveals mild colitis within the splenic flexure Surgery on board EGD is remarkable for mild duodenitis and gastritis but no gastric ulcers or neoplastic changes with no source of bleeding noted. Coagulation studies unremarkable; INR 1.0 Lactic acid downtrending 2.4 => 1.0 Urine drug screen positive for opiate, amphetamine and methamphetamine Pain management: Acetaminophen tab 650 mg PO q6hr PRN, Dilaudid 0.5 mg IVP q3hr PRN Increased IV Protonix 40 mg IVP twice daily Zofran 4 mg IVP every q8hr PRN for nausea/vomiting Monitor bowel movement for blood Follow-up labs in the morning IV normal saline discontinued; patient able to tolerate oral intakes Full liquid diet continue with levofloxacin 750 mg IVPB daily and flagyl 500 mg IVPB q 8 hr Ordered iron profile, ferritin, transferrin #History of atrial fibrillation (not on anticoagulant) Monitor on telemetry No known home medications #Chronic hypertension No known home medications Monitor blood pressure per floor protocol #GERD IV Protonix 40 mg IVP twice daily #Thrombocytosis, reactive, resolved #History of chronic alcohol abuse Former everyday drinker, states last drink was years ago Will monitor for any withdrawal symptom F: Oral E: Replete as needed N: N.p.o. A: Ambulatory DVT ppx: Mechanical SCDs due to GI bleeding GI prophylaxis: Protonix 40 mg IVP twice daily Code Status: Full code Anticipated discharge place: Pending clinical course Anticipated discharge date: Pending clinical course I have seen and evaluated the patient today. Discussed with the resident and agree with the residents finding and plan as documented in the resident's note. Changes highlighted in blue font. Objective - Vital Signs Vital signs: Vital Signs Temp 96.7 F L 06/13/24 14:00 Pulse 75 06/13/24 14:00 Resp 14 06/13/24 14:00 BP 157/85 06/13/24 14:00 Pulse Ox 100 06/13/24 14:00 FiO2 Intake & Output 06/12/24 06/13/24 06/13/24 18:59 06:59 18:59 Intake Total 640 Output Total 1250 1600 Balance 640 -1250 -1600 Intake: IV 100 Oral 540 Output: Urine 1250 1600 - Labs CBC & Chem 7: 06/13/24 03:32 06/13/24 03:32 Labs: Abnormal Lab Results - Last 24 Hours (Table) 06/13/24 06/13/24 06/13/24 Range/Units 03:32 03:32 03:32 RBC 4.26 L (4.30-5.90) m/uL Hgb 9.2 L (13.0-17.5) gm/dL Hct 31.5 L (39.0-53.0) % MCV 74.1 L (80.0-100.0) fL MCH 21.6 L (25.0-35.0) pg MCHC 29.1 L (31.0-37.0) g/dL RDW 22.5 H (11.5-15.5) % Retic Count 2.4 H (0.5-2.0) % Sodium 136 L (137-145) mmol/L BUN 5 L (9-20) mg/dL
[2024-06-13 17:18] LABS: % Iron Saturation 2.86 (15.00-50.00); Ferritin 35.5 ng/mL (22.0-322.0)
[2024-06-14 04:25] LABS: Anisocytosis Moderate; Basophils # (A) 0.1 k/uL (0-0.2); Basophils % (A) 1 %; Eosinophils # (A) 0.4 k/uL (0-0.7); Eosinophils % (A) 4 %; HCT 34.5 % (39.0-53.0); HGB 10.2 gm/dL (13.0-17.5); Hypochromasia Marked; Lymphocytes # (A) 2.1 k/uL (1.0-4.8); Lymphocytes % (A) 21 %; MCH 21.9 pg (25.0-35.0); MCHC 29.6 g/dL (31.0-37.0); MCV 74.1 fL (80.0-100.0); Mean Platelet Volume 7.9; Microcytosis Marked; Monocytes # (A) 0.5 k/uL (0-1.0); Monocytes % (A) 5 %; Neutrophils # (A) 6.9 k/uL (1.3-7.7); Neutrophils % (A) 68 %; Platelet Count 362 k/uL (150-450); RBC 4.66 m/uL (4.30-5.90); RDW 22.9 % (11.5-15.5); WBC 10.1 k/uL (3.8-10.6)
[2024-06-14 04:41] LABS: African American GFR (CKD) >90 (>60 ml/min/1.73 sqM); Anion Gap 6 mmol/L; Blood Urea Nitrogen 4 mg/dL (9-20); Calcium 9.2 mg/dL (8.4-10.2); Carbon Dioxide 25 mmol/L (22-30); Chloride 104 mmol/L (98-107); Glucose 149 mg/dL (74-99); Non-African American GFR(CKD) >90 (>60 ml/min/1.73 sqM); Potassium 3.9 mmol/L (3.5-5.1); Sodium 135 mmol/L (137-145)
--- NOTE | 2024-06-14 14:34 | P.PN ---
Subjective Progress Note Date: 06/14/24 Subjective: Patient seen and examined at the bedside. Patient is still complaining of mild left lower abdominal pain which he states is improving. No active bleeding. Denies hemoptysis, hemoptysis, melena or bright red blood per rectum. All Systems reviewed and pertinent positives and negatives noted in HPI, all other symptoms are negative Objective: Vital signs reviewed. General: non toxic, no distress, appears at stated age, normal weight Derm: no unusual rashes/lesions, warm Head: atraumatic, normocephalic, symmetric Eyes: EOMI, no lid lag, anicteric sclera, pupils equal round reactive to light ENT: Nose and ears atraumatic Neck: No cervical lymphadenopathy, trachea midline, supple Mouth: no lip lesion, mucus membranes moist Cardiovascular: S1S2 reg, no murmur, positive dorsalis pedis pulse bilateral, no edema Lungs: CTA bilateral, no rhonchi, no rales, no accessory muscle use Abdominal: Soft, mild tenderness to touch on left lower quadrant. No rebound tenderness. Bowel sounds positive. No guarding soft. Ext: muscle strength 5 out of 5 in all 4 extremities grossly, no gross muscle atrophy, no contractures, Neuro: CN II-XI grossly intact, no gross focal neuro deficits Psych: Alert, oriented, appropriate affect Data reviewed today: WBC 10.1, hemoglobin 10.2, Loyd crit 34.5, MCV 74.1, platelet 362, sodium 135, potassium 3.9, creatinine 0.74 Images: No new imaging Assessment and Plan: 59-year-old male with A-fib (not on anticoagulant), CAD with stent placement, hypertension, GERD presented to the ER complaining of hematemesis and blood in the stool. Patient is not taking aspirin and Plavix. Patient used amphetamine and methamphetamine prior to onset of symptoms. CT abdomen reveals mild colitis within the splenic flexure. Patient admitted for GI bleeding, likely ischemic colitis. Surgery consulted. EGD is is remarkable for mild duodenitis and gastri tis but no gastric ulcers or neoplastic changes with no source of bleeding noted. Hemoglobin stable. Advancing diet. # Acute upper and lower gastrointestinal bleeding # Iron deficiency anemia likely due to acute blood loss #Suspected ischemic colitis versus infectious colitis #Leukocytosis, resolved #Duodenitis and gastritis #Lactic acidosis, resolved #Polysubstance abuse, although patient denies No active bleeding Hemoglobin 10.2 and improving Continue monitor hemoglobin; transfuse if hemoglobin less than 7 CT abdomen reveals mild colitis within the splenic flexure Surgery on board EGD is remarkable for mild duodenitis and gastritis but no gastric ulcers or neoplastic changes with no source of bleeding noted. Coagulation studies unremarkable; INR 1.0 Urine drug screen positive for opiate, amphetamine and methamphetamine Pain management: Acetaminophen tab 650 mg PO q6hr PRN, Dilaudid 0.5 mg IVP q3hr PRN Discontinued IV Protonix 40 mg IVP twice daily; started on Protonix 40 mg p.o. twice daily Zofran 4 mg IVP every q8hr PRN for nausea/vomiting Monitor bowel movement for blood Follow-up labs in the morning IV normal saline discontinued; patient able to tolerate oral intakes Full liquid diet discontinued; started on regular diet; will continue monitor if patient is able to tolerate solid food continue with levofloxacin 750 mg IVPB daily and flagyl 500 mg IVPB q 8 hr Iron 11, TIBC 385, percent saturation 2.86, transferrin 269, ferritin 35.5 consistent with iron deficiency anemia likely secondary to acute blood loss Oral iron at the time of discharge Needs outpatient colonoscopy to rule out malignancy #History of atrial fibrillation (not on anticoagulant) Monitor on telemetry No known home medications #Chronic hypertension No known home medications Monitor blood pressure per floor protocol #GERD Protonix 40 mg p.o. twice daily #Thrombocytosis, reactive, resolved #History of chronic alcohol abuse Former everyday drinker, states last drink was years ago Will monitor for any withdrawal symptom F: Oral E: Replete as needed N: Regular diet A: Ambulatory DVT ppx: Mechanical SCDs due to GI bleeding GI prophylaxis: Protonix 40 mg p.o. twice daily Code Status: Full code Anticipated discharge place: Pending clinical course Anticipated discharge date: Pending clinical course I have seen and evaluated the patient today. Discussed with the resident and agree with the residents finding and plan as documented in the resident's note. Changes highlighted in blue font. Objective - Vital Signs Vital signs: Vital Signs Temp 97.8 F 06/14/24 12:55 Pulse 71 06/14/24 12:55 Resp 16 06/14/24 12:55 BP 142/71 06/14/24 12:55 Pulse Ox 99 06/14/24 12:55 FiO2 Intake & Output 06/13/24 06/14/24 06/14/24 18:59 06:59 18:59 Intake Total 2235 640 800 Output Total 1600 600 1 Balance 635 40 799 Intake: Intake, IV Titration 1455 100 Amount Levofloxacin 750Mg-D5w 150 Pmx 750 mg In Dextrose/ Water 1 150ml.bag @ 100 mls/hr IVPB Q24H [facility] Rx#: [id number] Sodium Chloride 0.9% 1, 1105 000 ml @ 130 mls/hr IV . Q7H42M [facility] Rx#:[id number] metroNIDAZOLE-NS PMX 500 200 100 mg In Saline 1 100ml.bag @ 100 mls/hr IVPB Q8HR [facility] Rx#:[id number] Oral 780 540 800 Output: Urine 1600 600 Stool 1 Other: Voiding Method Toilet Urinal # Bowel Movements 1 - Labs CBC & Chem 7: 06/14/24 03:45 06/14/24 03:45 Labs: Abnormal Lab Results - Last 24 Hours (Table) 06/13/24 06/14/24 06/14/24 Range/Units 03:32 03:45 03:45 Hgb 10.2 L (13.0-17.5) gm/dL Hct 34.5 L (39.0-53.0) % MCV 74.1 L (80.0-100.0) fL MCH 21.9 L (25.0-35.0) pg MCHC 29.6 L (31.0-37.0) g/dL RDW 22.9 H (11.5-15.5) % Sodium 135 L (137-145) mmol/L BUN 4 L (9-20) mg/dL Glucose 149 H (74-99) mg/dL Iron 11 L (65-175) UG/DL % Saturation 2.86 L (15.00-50.00)
[2024-06-14] MEDS: PANTOPRAZOLE 40 MG TABLET PO SCH (15:35)
--- NOTE | 2024-06-14 16:00 | P.PN ---
Subjective Progress Note Date: 06/14/24 CHIEF COMPLAINT: GI bleed HISTORY OF PRESENT ILLNESS: The patient is a 59-year-old male being evaluated for GI bleed. He reports no nausea and vomiting today. He is tolerating full liquid diet. No reports of hematemesis. No reports of blood in stools. He denies any abdominal pain today. ROS: No reports of nausea and vomiting. No fevers or chills. No new chest pain. No productive sputum PHYSICAL EXAM: VITAL SIGNS: Reviewed CONSTITUTIONAL: Well developed and in no acute distress. EYES: Conjuctivae without sclera icterus. Extraocular movements grossly intact. HEAD, EARS, NOSE, THROAT: Moist buccal mucosa. Head is atraumatic, normocephalic. Hears conversational speech. No nasal drainage. He is edentulous. RESPIRATORY: Non-labored respirations and equal bilateral excursions. CARDIOVASCULAR: Palpable 2+ radial pulses. ABDOMEN: No peritonitis. MUSCULOSKELETAL: No gross deformity of the lower extremities noted. No clubbing. No cyanosis. SKIN: Good skin turgor. Well perfused. NEUROLOGIC: Cranial nerves II through XII grossly intact. No focal or lateralizing signs. PSYCH: Appropriate affect. Alert and oriented to person, place and time. CLINICAL LABS: Reviewed. Anemia, hemoglobin of 9.2-10.2 in 24 hours. WBC normal. ASSESSMENT: 1. Acute hematemesis 2. Anemia PLAN: 1. Clinically he is tolerating full liquid diet with no further bleeding. 2. May advance diet to low fiber. Objective - Vital Signs Vital signs: Vital Signs Temp 97.8 F 06/14/24 12:55 Pulse 71 06/14/24 12:55 Resp 16 06/14/24 12:55 BP 142/71 06/14/24 12:55 Pulse Ox 99 06/14/24 12:55 FiO2 Intake & Output 06/13/24 06/14/24 06/14/24 18:59 06:59 18:59 Intake Total 2235 640 800 Output Total 1600 600 1 Balance 635 40 799 Intake: Intake, IV Titration 1455 100 Amount Levofloxacin 750Mg-D5w 150 Pmx 750 mg In Dextrose/ Water 1 150ml.bag @ 100 mls/hr IVPB Q24H [facility] Rx#: [id number] Sodium Chloride 0.9% 1, 1105 000 ml @ 130 mls/hr IV . Q7H42M [facility] Rx#:[id number] metroNIDAZOLE-NS PMX 500 200 100 mg In Saline 1 100ml.bag @ 100 mls/hr IVPB Q8HR [facility] Rx#:[id number] Oral 780 540 800 Output: Urine 1600 600 Stool 1 Other: Voiding Method Toilet Urinal # Bowel Movements 1 - Labs CBC & Chem 7: 06/14/24 03:45 06/14/24 03:45 Labs: Abnormal Lab Results - Last 24 Hours (Table) 06/13/24 06/14/24 06/14/24 Range/Units 03:32 03:45 03:45 Hgb 10.2 L (13.0-17.5) gm/dL Hct 34.5 L (39.0-53.0) % MCV 74.1 L (80.0-100.0) fL MCH 21.9 L (25.0-35.0) pg MCHC 29.6 L (31.0-37.0) g/dL RDW 22.9 H (11.5-15.5) % Sodium 135 L (137-145) mmol/L BUN 4 L (9-20) mg/dL Glucose 149 H (74-99) mg/dL Iron 11 L (65-175) UG/DL % Saturation 2.86 L (15.00-50.00)
[2024-06-15 07:37] VITALS: RESP 15
[2024-06-15 09:35] LABS: HCT 38.2 % (39.6-50.0); HGB 11.1 g/dL (13.0-17.0); MCH 20.9 pg (27.0-32.0); MCHC 29.1 g/dL (32.0-37.0); MCV 72.1 FL (80.0-97.0); Mean Platelet Volume 10.7 FL (9.5-12.2); NRBC Per 100 WBC 0 X 10*3/uL (0.00-0.01); Platelet Count 482 X 10*3/uL (140-440); RDW 25.8 % (11.5-14.5); WBC 10.39 X 10*3/uL (4.50-10.00)
[2024-06-15 10:59] LABS: Anisocytosis (M) 2+; Basophils # (A) 0.07 X 10*3/uL (0.00-0.10); Basophils % (A) 0.7 %; Eosinophils # (A) 0.44 X 10*3/uL (0.04-0.35); Eosinophils % (A) 4.2 %; Lymphocytes # (A) 2.92 X 10*3/uL (0.90-5.00); Lymphocytes % (A) 28.1 %; Microcytosis (M) 2+; Monocytes # (A) 0.83 X 10*3/uL (0.20-1.00); Neutrophils # (A) 6.11 X 10*3/uL (1.80-7.70); Neutrophils % (A) 58.8 %
--- NOTE | 2024-06-15 12:11 | P.PN ---
Subjective Progress Note Date: 06/15/24 Discharge Diagnosis: # Acute upper and lower gastrointestinal bleeding # Iron deficiency anemia likely due to acute blood loss # Infectious colitis #Leukocytosis #Duodenitis and gastritis #Lactic acidosis, #Polysubstance abuse, although patient denies #History of atrial fibrillation (not on anticoagulant) #Chronic hypertension #GERD #Thrombocytosis, reactive, resolved #History of chronic alcohol abuse Hospital Course: 59-year-old male with A-fib (not on anticoagulant), CAD with stent placement, hypertension, GERD presented to the ER complaining of hematemesis and blood in the stool. Patient is not taking aspirin and Plavix. Patient used amphetamine and methamphetamine prior to onset of symptoms. On initial presentation, patient was tachycardic and tachypneic. Blood pressure stable. WBC 13, hemoglobin 11.5, lactate 2.4, creatinine 0.72. CT abdomen reveals mild colitis within the splenic flexure. Patient admitted for GI bleeding, likely ischemic colitis. Surgery consulted. EGD is is remarkable for mild duodenitis and gastritis but no gastric ulcers or neoplastic changes with no source of bleeding noted. Hemoglobin stable. Advancing diet. Tolerating oral intake. Being discharged on oral antibiotics. Also found to have iron deficiency anemia. Being discharged on oral iron. Follow-up with PCP and general surgery. Due to his age and iron deficiency anemia, he would need colonoscopy to rule out any colon cancer. Patient seen and examined at bedside. Vital signs reviewed and stable. General: Nontoxic, no distress, appears at stated age Derm: Warm, dry Head: Atraumatic, normocephalic, symmetric Eyes: EOMI, no lid lag, anicteric sclera Mouth: No lip lesion, mucus membranes moist Cardiovascular: S1S2 reg, no murmur Lungs: CTA bilateral, no rhonchi, no rales, no accessory muscle use Abdominal: Soft, nontender to palpation, no guarding, no appreciable org anomegaly Ext: No gross muscle atrophy, no edema, no contractures Neuro: CN II-XI grossly intact, no focal neuro deficits Psych: Alert, oriented, appropriate affect A total of 33 minutes of time were spent preparing this complex discharge summary. Patient was discharged on 06/15/2024 at 1040. Objective - Vital Signs Vital signs: Vital Signs Temp 97.7 F 06/15/24 07:03 Pulse 63 06/15/24 08:45 Resp 15 06/15/24 08:45 BP 122/70 06/15/24 07:03 Pulse Ox 98 06/15/24 07:03 FiO2 Intake & Output 06/14/24 06/15/24 06/15/24 18:59 06:59 18:59 Intake Total 2500 640 480 Output Total 1901 1001 1 Balance 599 -361 479 Intake: Intake, IV Titration 100 Amount metroNIDAZOLE-NS PMX 500 100 mg In Saline 1 100ml.bag @ 100 mls/hr IVPB Q8HR [facility] Rx#:[id number] Oral 2500 540 480 Output: Urine 1900 1000 Stool 1 1 1 Other: Voiding Method Toilet Toilet Toilet Urinal Urinal Urinal # Voids 4 - Labs CBC & Chem 7: 06/15/24 04:28 06/14/24 03:45 Labs: Abnormal Lab Results - Last 24 Hours (Table) 06/15/24 Range/Units 04:28 WBC 10.39 H (4.50-10.00) X 10*3/uL Hgb 11.1 L (13.0-17.0) g/dL Hct 38.2 L (39.6-50.0) % MCV 72.1 L (80.0-97.0) FL MCH 20.9 L (27.0-32.0) pg MCHC 29.1 L (32.0-37.0) g/dL RDW 25.8 H (11.5-14.5) % Plt Count 482 H (140-440) X 10*3/uL Eosinophils # 0.44 H (0.04-0.35) X 10*3/uL Anisocytosis (manual) 2+ A Microcytosis (manual) 2+ A
[2024-06-15 12:42] VITALS: BP 145/83; PULSE 71; TEMP 98.2
--- NOTE | 2024-06-15 17:01 | P.PN ---
Subjective Progress Note Date: 06/15/24 CHIEF COMPLAINT: GI bleed HISTORY OF PRESENT ILLNESS: The patient is a 59-year-old male being evaluated for GI bleed. He was advanced to low fiber diet and tolerated meatloaf. No nausea vomiting or bleeding. ROS: No reports of nausea and vomiting. No fevers or chills. No new chest pain. No productive sputum PHYSICAL EXAM: VITAL SIGNS: Reviewed CONSTITUTIONAL: Well developed and in no acute distress. EYES: Conjuctivae without sclera icterus. Extraocular movements grossly intact. HEAD, EARS, NOSE, THROAT: Moist buccal mucosa. Head is atraumatic, normocephalic. Hears conversational speech. No nasal drainage. He is edentulous. RESPIRATORY: Non-labored respirations and equal bilateral excursions. CARDIOVASCULAR: Palpable 2+ radial pulses. ABDOMEN: No peritonitis. MUSCULOSKELETAL: No gross deformity of the lower extremities noted. No clubbing. No cyanosis. SKIN: Good skin turgor. Well perfused. NEUROLOGIC: Cranial nerves II through XII grossly intact. No focal or laterali zing signs. PSYCH: Appropriate affect. Alert and oriented to person, place and time. CLINICAL LABS: Reviewed. ASSESSMENT: 1. Acute hematemesis 2. Anemia PLAN: 1. Overall he is doing well and tolerating diet and may be discharged from a surgical standpoint Objective - Vital Signs Vital signs: Vital Signs Temp 98.2 F 06/15/24 12:41 Pulse 71 06/15/24 12:41 Resp 15 06/15/24 12:41 BP 145/83 06/15/24 12:41 Pulse Ox 99 06/15/24 12:41 FiO2 Intake & Output 06/14/24 06/15/24 06/15/24 18:59 06:59 18:59 Intake Total 2500 640 2760 Output Total 1901 1001 1401 Balance 599 361 1359 Intake: Intake, IV Titration 100 Amount metroNIDAZOLE-NS PMX 500 100 mg In Saline 1 100ml.bag @ 100 mls/hr IVPB Q8HR [facility] Rx#:[id number] Oral 2500 540 2760 Output: Urine 1900 1000 1400 Stool 1 1 1 Other: Voiding Method Toilet Toilet Toilet Urinal Urinal Urinal # Voids 4 # Bowel Movements 1 - Labs CBC & Chem 7: 06/15/24 04:28 06/14/24 03:45 Labs: Abnormal Lab Results - Last 24 Hours (Table) 06/15/24 Range/Units 04:28 WBC 10.39 H (4.50-10.00) X 10*3/uL Hgb 11.1 L (13.0-17.0) g/dL Hct 38.2 L (39.6-50.0) % MCV 72.1 L (80.0-97.0) FL MCH 20.9 L (27.0-32.0) pg MCHC 29.1 L (32.0-37.0) g/dL RDW 25.8 H (11.5-14.5) % Plt Count 482 H (140-440) X 10*3/uL Eosinophils # 0.44 H (0.04-0.35) X 10*3/uL Anisocytosis (manual) 2+ A Microcytosis (manual) 2+ A
== END 2024-06-15 20:00 | disposition home health service (06) | DRG 241 ==
LOC: EC 14:54 → 5NMEDONC 20:56 → OBSVTOIN 20:56 → 5NMEDONC 21:56 → UNDODISOB 06-15 20:00
PROVIDERS: ADMIT Internal Medicine; ATTEND Internal Medicine
PROC: 0DB78ZX Excision of Stomach, Pylorus, Via Natural or Artificial Opening Endoscopic, Diagnostic (ICD-10-PCS; principal; 2024-06-12 07:30)
PROC: 0DB98ZX Excision of Duodenum, Via Natural or Artificial Opening Endoscopic, Diagnostic (ICD-10-PCS; principal; 2024-06-12 07:30)
DX: K29.71 Gastritis, unspecified, with bleeding (principal); K29.81 Duodenitis with bleeding; K44.9 Diaphragmatic hernia without obstruction or gangrene; K55.9 Vascular disorder of intestine, unspecified; A09 Infectious gastroenteritis and colitis, unspecified; D50.9 Iron deficiency anemia, unspecified; D72.829 Elevated white blood cell count, unspecified; D75.838 Other thrombocytosis; E80.6 Other disorders of bilirubin metabolism; E87.20 Acidosis, unspecified; R51.9 Headache, unspecified; D64.9 Anemia, unspecified; I48.91 Unspecified atrial fibrillation; I25.10 Atherosclerotic heart disease of native coronary artery without angina pectoris; I10 Essential (primary) hypertension; K21.9 Gastro-esophageal reflux disease without esophagitis; F10.10 Alcohol abuse, uncomplicated; F19.10 Other psychoactive substance abuse, uncomplicated; Z87.891 Personal history of nicotine dependence; Z95.5 Presence of coronary angioplasty implant and graft; Z28.21 Immunization not carried out because of patient refusal; Z79.899 Other long term (current) drug therapy
CPT/HCPCS: 36415; 43239; 71260; 74177; 80048; 80053; 80306; 82272; 82728; 83540; 83550; 83605; 83690; 83735; 84466; 84484; 85025; 85027; 85045; 85610; 85730; 86850; 86900; 86901; 88305; 93005; 96361; 96374; 96375; 99285

== ENCOUNTER 2024-09-19 10:11 | Emergency (ER) | payer OTHER ==
[2024-09-19 10:32] VITALS: RESP 18; TEMP 97.6
[2024-09-19] MEDS: KETOROLAC 15 MG/ML 1 ML VIAL IVP STA (11:28)
[2024-09-19] MEDS: ORPHENADRINE 30 MG/ML 2 ML VIAL IVP STA (11:29)
[2024-09-19] MEDS: OXYMETAZOLINE 0.05% NASL SPRAY 1 SPRAY BOTTLE NASAL STA (11:29)
[2024-09-19 11:39] LABS: Anisocytosis Slight; Basophils # (A) 0.1 k/uL (0-0.2); Basophils % (A) 1 %; Eosinophils # (A) 0.2 k/uL (0-0.7); Eosinophils % (A) 4 %; HCT 44.5 % (39.0-53.0); HGB 14.5 gm/dL (13.0-17.5); Lymphocytes # (A) 1.7 k/uL (1.0-4.8); Lymphocytes % (A) 31 %; MCH 27.6 pg (25.0-35.0); MCHC 32.6 g/dL (31.0-37.0); MCV 84.6 fL (80.0-100.0); Mean Platelet Volume 8.9; Monocytes # (A) 0.6 k/uL (0-1.0); Monocytes % (A) 11 %; Neutrophils # (A) 2.7 k/uL (1.3-7.7); Neutrophils % (A) 49 %; Platelet Count 231 k/uL (150-450); RBC 5.26 m/uL (4.30-5.90); RDW 17.7 % (11.5-15.5); WBC 5.4 k/uL (3.8-10.6)
[2024-09-19 11:46] LABS: ALT 33 U/L (4-49); African American GFR (CKD) >90 (>60 ml/min/1.73 sqM); Anion Gap 7 mmol/L; Blood Urea Nitrogen 12 mg/dL (9-20); Calcium 9.4 mg/dL (8.4-10.2); Carbon Dioxide 19 mmol/L (22-30); Chloride 111 mmol/L (98-107); Glucose 100 mg/dL (74-99); Non-African American GFR(CKD) >90 (>60 ml/min/1.73 sqM); Sodium 137 mmol/L (137-145); Total Bilirubin 1.3 mg/dL (0.2-1.3)
[2024-09-19 11:51] LABS: Magnesium 1.9 mg/dL (1.6-2.3)
[2024-09-19 11:52] LABS: AST 36 U/L (17-59); Albumin 4.6 g/dL (3.5-5.0); Alkaline Phosphatase 46 U/L (38-126); Total Protein 7.5 g/dL (6.3-8.2)
--- NOTE | 2024-09-19 12:34 | ED ---
General Adult HPI - General Chief complaint: Chest Pain Stated complaint: chest pain Time Seen by Provider: 09/19/24 10:37 Source: patient, RN notes reviewed Mode of arrival: EMS Limitations: no limitations - History of Present Illness Initial comments: 59-year-old male presents to the emergency department for evaluation of right sided chest wall pain. Patient states that the pain is worse with movement. He also reports that it is worse with inspiration. He states that this started this morning. He denies any fever, recent illness. Denies any radiation of the pain. - Related Data Previous Rx's Medication Instructions Recorded Acetaminophen Tab [Tylenol] 650 mg PO Q6HR PRN tab 06/15/24 Ascorbic Acid [Vitamin C] 500 mg PO DAILY #60 tablet 06/15/24 Ferrous Sulfate [Feosol] 325 mg PO DAILY #60 tab 06/15/24 Levofloxacin [Levaquin] 750 mg PO DAILY 1 Days #7 tab 06/15/24 Pantoprazole [Protonix] 40 mg PO AC-BID #90 tab 06/15/24 metroNIDAZOLE [Flagyl] 500 mg PO TID #21 tab 06/15/24 Cyclobenzaprine [Flexeril] 10 mg PO TID PRN #15 tab 09/19/24 Allergies Allergy/AdvReac Type Severity Reaction Status Date / Time No Known Allergies Allergy Verified 09/19/24 10:32 Review of Systems ROS Statement: Those systems with pertinent positive or pertinent negative responses have been documented in the HPI. ROS Other: All systems not noted in ROS Statement are negative. Past Medical History Past Medical History: Chest Pain / Angina, GERD/Reflux, Hypertension Last Myocardial Infarction Date:: 2009 History of Any Multi-Drug Resistant Organisms: None Reported Past Surgical History: No Surgical Hx Reported Past Anesthesia/Blood Transfusion Reactions: No Reported Reaction Date of Last Stent Placement:: 2009 Past Psychological History: No Psychological Hx Reported Smoking Status: Never smoker Past Alcohol Use History: Occasional Past Drug Use History: Marijuana General Exam Limitations: no limitations General appearance: alert, in no apparent distress Head exam: Present: atraumatic, normocephalic, normal inspection Course Vital Signs 09/19/24 09/19/24 09/19/24 10:30 13:10 14:26 Temperature 97.6 F Pulse Rate 80 94 85 Respiratory 18 18 18 Rate Blood Pressure 172/104 159/101 155/97 O2 Sat by Pulse 99 98 100 Oximetry Medical Decision Making - Medical Decision Making Was pt. sent in by a medical professional or institution (SUSAN Davis, ARCHITECTURAL DRAFTSPERSON, urgent care, hospital, or detention...) When possible be specific @ -No Did you speak to anyone other than the patient for history (EMS, parent, family, police, friend...)? What history was obtained from this source @ -No Did you review nursing and triage notes (agree or disagree)? Why? @ -I reviewed and agree with nursing and triage notes Were old charts reviewed (outside hosp., previous admission, EMS record, old EKG, old radiological studies, urgent care reports/EKG's, detention records)? Report findings @ -No old charts were reviewed Differential Diagnosis (chest pain, altered mental status, abdominal pain women, abdominal pain men, vaginal bleeding, weakness, fever, dyspnea, syncope, headache, dizziness, GI bleed, back pain, seizure, CVA, palpatations, mental health, musculoskeletal)? @ -Differential Chest Pain: Stable Angina, Unstable Angina, STEMI, NSTEMI Aortic Dissection, Pneumothorax, Musculoskeletal, Esophageal Spasm GERD, Cholecystitis, Pancreatitis, Zoster, this is not meant to be an all-inclusive list. EKG interpreted by me (3pts min.). @ -EKG at 1124 shows sinus rhythm, right bundle branch block with a rate of 72, HI 160, QRS 150, QTQTc 426/449 this is comparable to prior X-rays interpreted by me (1pt min.). @ -Chest x-ray shows no evidence of acute process CT interpreted by me (1pt min.). @ -None done U/S interpreted by me (1pt. min.). @ -None done What testing was considered but not performed or refused? (CT, X-rays, U/S, labs)? Why? @ -None What meds were considered but not given or refused? Why? @ -None Did you discuss the management of the patient with other professionals (professionals i.e. SUSAN Davis, ARCHITECTURAL DRAFTSPERSON, lab, RT, psych nurse, social media content manager, community leader, teacher, forward air controller/air officer, case resource manager)? Give summary @ -No Was smoking cessation discussed for >3mins.? @ -No Was critical care preformed (if so, how long)? @ -No Were there social determinants of health that impacted care today? How? ( Homelessness, low income, unemployed, alcoholism, drug addiction, transportation, low edu. Level, literacy, decrease access to med. care, senior living, rehab)? @ -No Was there de-escalation of care discussed even if they declined (Discuss DNR or withdrawal of care, Hospice)? DNR status @ -No What co-morbidities impacted this encounter? (DM, HTN, Smoking, COPD, CAD, Cancer, CVA, ARF, Chemo, Hep., AIDS, mental health diagnosis, sleep apnea, morbid obesity)? @ -None Was patient admitted / discharged? Hospital course, mention meds given and route, prescriptions, significant lab abnormalities, going to OR and other pertinent info. @ -Discharge. Patient presented to emergency department for evaluation of right-sided chest pain. His laboratory studies obtained.There is no significant leukocytosis normal coagulation studies, negative D-dimer CMP nonactionable, negative troponin. Chest x-ray reveals no acute process. Patient reports resolution of his symptoms with Norflex and Toradol. The patient will be discharged home as this is likely musculoskeletal in nature. He is understanding agreeable with this plan. Patient stable at time of discharge. Case discussed with Dr. Hernandez Undiagnosed new problem with uncertain prognosis? @ -No Drug Therapy requiring intensive monitoring for toxicity (Heparin, Nitro, Insulin, Cardizem)? @ -No Were any procedures done? @ -No Diagnosis/symptom? @ -Musculoskeletal chest pain Acute, or Chronic, or Acute on Chronic? @ -Acute Uncomplicated (without systemic symptoms) or Complicated (systemic symptoms)? @ -Uncomplicated Side effects of treatment? @ -No Exacerbation, Progression, or Severe Exacerbation? @ -No Poses a threat to life or bodily function? How? (Chest pain, USA, NM, pneumonia, PE, COPD, DKA, ARF, appy, cholecystitis, CVA, Diverticulitis, Homicidal, Suicidal, threat to staff... and all critical care pts) @ -No - Lab Data Result diagrams: 09/19/24 11:27 09/19/24 11:27 Lab Results 09/19/24 09/19/24 09/19/24 Range/Units 11:27 11:27 11:27 WBC 5.4 (3.8-10.6) k/uL RBC 5.26 (4.30-5.90) m/uL Hgb 14.5 (13.0-17.5) gm/dL Hct 44.5 (39.0-53.0) % MCV 84.6 (80.0-100.0) fL MCH 27.6 (25.0-35.0) pg MCHC 32.6 (31.0-37.0) g/dL RDW 17.7 H (11.5-15.5) % Plt Count 231 (150-450) k/uL MPV 8.9 Neutrophils % 49 % Lymphocytes % 31 % Monocytes % 11 % Eosinophils % 4 % Basophils % 1 % Neutrophils # 2.7 (1.3-7.7) k/uL Lymphocytes # 1.7 (1.0-4.8) k/uL Monocytes # 0.6 (0-1.0) k/uL Eosinophils # 0.2 (0-0.7) k/uL Basophils # 0.1 (0-0.2) k/uL Anisocytosis Slight PT (10.0-12.5) sec INR (<1.2) APTT (22.0-30.0) sec D-Dimer (<0.60) mg/L FEU Sodium 137 (137-145) mmol/L Potassium 5.0 (3.5-5.1) mmol/L Chloride 111 H (98-107) mmol/L Carbon Dioxide 19 L (22-30) mmol/L Anion Gap 7 mmol/L BUN 12 (9-20) mg/dL Creatinine 0.71 (0.66-1.25) mg/dL Est GFR (CKD-EPI)AfAm >90 (>60 ml/min/1.73 sqM) Est GFR (CKD-EPI)NonAf >90 (>60 ml/min/1.73 sqM) Glucose 100 H (74-99) mg/dL Calcium 9.4 (8.4-10.2) mg/dL Magnesium 1.9 (1.6-2.3) mg/dL Total Bilirubin 1.3 (0.2-1.3) mg/dL AST 36 (17-59) U/L ALT 33 (4-49) U/L Alkaline Phosphatase 46 (38-126) U/L Troponin I <0.012 (0.000-0.034) ng/mL Total Protein 7.5 (6.3-8.2) g/dL Albumin 4.6 (3.5-5.0) g/dL 09/19/24 Range/Units 13:23 WBC (3.8-10.6) k/uL RBC (4.30-5.90) m/uL Hgb (13.0-17.5) gm/dL Hct (39.0-53.0) % MCV (80.0-100.0) fL MCH (25.0-35.0) pg MCHC (31.0-37.0) g/dL RDW (11.5-15.5) % Plt Count (150-450) k/uL MPV Neutrophils % % Lymphocytes % % Monocytes % % Eosinophils % % Basophils % % Neutrophils # (1.3-7.7) k/uL Lymphocytes # (1.0-4.8) k/uL Monocytes # (0-1.0) k/uL Eosinophils # (0-0.7) k/uL Basophils # (0-0.2) k/uL Anisocytosis PT 10.9 (10.0-12.5) sec INR 1.0 (<1.2) APTT 24.8 (22.0-30.0) sec D-Dimer <0.17 (<0.60) mg/L FEU Sodium (137-145) mmol/L Potassium (3.5-5.1) mmol/L Chloride (98-107) mmol/L Carbon Dioxide (22-30) mmol/L Anion Gap mmol/L BUN (9-20) mg/dL Creatinine (0.66-1.25) mg/dL Est GFR (CKD-EPI)AfAm (>60 ml/min/1.73 sqM) Est GFR (CKD-EPI)NonAf (>60 ml/min/1.73 sqM) Glucose (74-99) mg/dL Calcium (8.4-10.2) mg/dL Magnesium (1.6-2.3) mg/dL Total Bilirubin (0.2-1.3) mg/dL AST (17-59) U/L ALT (4-49) U/L Alkaline Phosphatase (38-126) U/L Troponin I (0.000-0.034) ng/mL Total Protein (6.3-8.2) g/dL Albumin (3.5-5.0) g/dL Disposition Clinical Impression: Chest wall pain Disposition: HOME SELF-CARE Condition: Stable Instructions (If sedation given, give patient instructions): Chest Pain (ED) Additional Instructions: Do not drive or operate heavy machinery while taking muscle relaxers. Please follow-up with your primary care provider. Return to the emergency department for new or worsening symptoms. Prescriptions: Cyclobenzaprine [Flexeril] 10 mg PO TID PRN #15 tab PRN Reason: Muscle Spasm Is patient prescribed a controlled substance at d/c from ED?: No Referrals: Gabriella James NPC [Primary Care Provider] - 1-2 days
--- NOTE | 2024-09-19 12:49 | XR ---
EXAMINATION TYPE: XR chest 2V DATE OF EXAM: 09/19/2024 11:49 AM COMPARISON: Chest radiographs from04/28/2014. CLINICAL INDICATION: Male, 59 years old with history of Chest Pain; TECHNIQUE: XR chest 2V Frontal and lateral views of the chest. FINDINGS: Lungs/Pleura: There is no evidence of pleural effusion, focal consolidation, or pneumothorax. Pulmonary vascularity: Unremarkable. Heart/mediastinum: Cardiomediastinal silhouette is unremarkable. Musculoskeletal: No acute osseous pathology. IMPRESSION: No acute cardiopulmonary disease/process. [facility], , 09/19/2024 12:47 PM
[2024-09-19 13:45] LABS: Partial Thromboplastin Time 24.8 sec (22.0-30.0); Prothrombin Time 10.9 sec (10.0-12.5)
[2024-09-19 14:28] VITALS: BP 155/97; PULSE 85
== END 2024-09-19 14:28 | disposition home or self-care (01) ==
LOC: EC 10:11
DX: R07.89 Other chest pain (principal); I45.10 Unspecified right bundle-branch block
CPT/HCPCS: 36415; 93005; 85379; 80053; 83735; 84484; 85025; 85610; 85730; 71046; 99285; 96374; 96375; J2360; J1885

== ENCOUNTER → 2024-12-03 | Outpatient (CLI) | payer OTHER ==
[2024-12-03 07:57] VITALS: BP 113/79; PULSE 85; RESP 18; TEMP 96.8
--- NOTE | 2024-12-03 14:27 | P.PAINPG ---
PQRS Measure Charge Sheet Comment: HISTORY OF PRESENT ILLNESS: A 59 yr old male as a referral from Gabriella DIEHL presents today w severe and chronic BLP > 3 mo secondary to radiculopathy, spondylosis and facet arthropathy without myelopathy for evaluation. Pt states pain level is provoked at 10 /10 in intensity, intermittent, localized in the lumbar spine, predominantly axial, tingling in character w occasional shooting pain towards the toes. Pain is provoked by bending, lifting. Pain is alleviated by heat, topical, Cannabis, manual massage, repositioning and rest . Oswestry axial pain score at 25. PMH: OA, Angina, GERD, HTN, OK (2010), BPH PSH: Cardiac Catheterization w Stent (2009), Stent in Groin SH: Never smoker, Occ ETOH use, Cannabis use FH: Non contributory All: See list Meds: See list incl CBD Oil REVIEW OF ORGAN SYSTEMS: CONSTITUTIONAL: No fevers or chills. No recent weight loss. NEUROLOGICAL: + numbness and tingling along the distal extremities. No seizure disorders or headaches. MUSCULOSKELETAL: + pain PSYCHIATRIC: Denies current depression or suicidal thoughts. Physical Examinations : Constitutional : Cooperative , not in acute distress . Neurologic : Cranial nerve II to XII intact. No focal neurological deficits. Psychiatric : alert & oriented x 3. Matching mood & appropriate affect. Judgment & insight intact. Musculoskeletal : Cervical Spine Motor strength in the deltoid and biceps: Normal right side. Normal Left side Motor strength biceps and the wrist extensors: Normal right side . Normal left side Motor strength in the triceps muscle: Normal right side. Normal left side Deep tendon reflexes: Normal at the biceps. Normal at Brachioradialis. Normal at triceps Vertebral body tenderness to deep palpation over Cervical facet loading test: positive bilaterally Spurling test: positive bilaterally Neck distraction test: positive bilaterally Tate sign: positive bilaterally Lumbar spine Motor strength lower extremities ,thigh and legs 5/5 Right side , 5/5 Left side Deep tendon reflexes : Normal Knee Jerk. Normal Ankle Jerk Vertebral body tenderness over Rogers Test positive Lumbar facet Loading Test: positive Right / positive Left Range of motion of the lumbar spine Flexion 30 degrees, extension 10 degrees Straight Leg Raise test: Left/ Right positive at degrees Agustina test: positive right / positive left. Severe tenderness over the Sacroiliac joint on the Right / Left sides Gaenslen test: positive bilaterally Seated flexion test: positive bilaterally. Sacral spine : Severe tenderness over the Sacroiliac joint: right side / left side Range of motion: Flexion of the lumbar spine <60 degrees Range of motion: Extension of the lumbar spine <20 degrees Gaenslen's Test positive Agustina test: positive right side / left side Thigh Thrust Test Sacral Thrust Test Imaging: None on file Assessment/ Plan : Lumbar radiculopathy Recommendation of PT x 6 wks and x ray M54.16. All questions answered. I have spent greater than 30 minutes on patient care today. Dr Saavedra was available by phone for the evaluation of this patient. The time was used to review the medical records including relevant urine studies and Prescription history (MAPs), review of the available imaging, evaluation and examination of the patient, coordination of care with the medical staff and if applicable referring physicians, as well as creation of the medical record PQRS Narrative: Smoking Status Current every day smoker Home Medications: Ambulatory Orders Acetaminophen Tab [Tylenol] 650 mg PO Q6HR PRN tab 06/15/24 Ascorbic Acid [Vitamin C] 500 mg PO DAILY #60 tablet 06/15/24 Ferrous Sulfate [Feosol] 325 mg PO DAILY #60 tab 06/15/24 Levofloxacin [Levaquin] 750 mg PO DAILY 1 Days #7 tab 06/15/24 Pantoprazole [Protonix] 40 mg PO AC-BID #90 tab 06/15/24 metroNIDAZOLE [Flagyl] 500 mg PO TID #21 tab 06/15/24 Cyclobenzaprine [Flexeril] 10 mg PO TID PRN #15 tab 09/19/24 Controlled Substance Measures - Controlled Substance Measures Is patient prescribed a controlled substance at discharge?: No
== END ==
LOC: PNWHC3 07:26
PROVIDERS: ATTEND Specialist
DX: M54.16 Radiculopathy, lumbar region (principal); F17.210 Nicotine dependence, cigarettes, uncomplicated; F12.90 Cannabis use, unspecified, uncomplicated
CPT/HCPCS: 99202

== ENCOUNTER → 2024-12-18 | Outpatient (CLI) | payer OTHER ==
[2024-12-18 12:09] VITALS: BP 122/70; PULSE 110; RESP 16; TEMP 97.6
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
== END ==
LOC: 3 N SLEEP 11:36
PROVIDERS: ATTEND Internal Medicine
DX: G47.33 Obstructive sleep apnea (adult) (pediatric) (principal); E78.5 Hyperlipidemia, unspecified; D64.9 Anemia, unspecified; F41.9 Anxiety disorder, unspecified; N40.0 Benign prostatic hyperplasia without lower urinary tract symptoms; I10 Essential (primary) hypertension; F17.210 Nicotine dependence, cigarettes, uncomplicated; F12.90 Cannabis use, unspecified, uncomplicated; Z98.890 Other specified postprocedural states; Z87.828 Personal history of other (healed) physical injury and trauma
CPT/HCPCS: 99211

== ENCOUNTER → 2025-01-29 | Outpatient (CLI) | payer OTHER ==
--- NOTE | 2025-02-04 11:22 | P.PCN ---
Description of Procedure: CLINICAL: A home sleep apnea test has been done for confirmation of possible obstructive sleep apnea-hypopnea syndrome. DESCRIPTION OF PROCEDURE: RESULTS: Recording time was 7 hours 25 minutes. Evaluation time was 7 hours 11 minutes. Evaluation time is sufficient for making conclusion about results of the test. Raw data of sleep recording has been reviewed and is adequate. Respiratory channel showed 13 apneas and 5 hypopneas. Apnea-hypopnea index was 2.5 per hour. Pulse rate in the range between minimum 74, maximum 104, average 91 by computer calculation. Lowest desaturation was 90%. Pulse oximeter stopped working at 11:23 PM, subsequently oxygen saturation evaluation was done only for 1 hour and 50. IMPRESSION: 1. During home sleep apnea test oximeter signal was recorded only for 1 hour and 50 minutes, which does not allowed to make any conclusion. Please see other impressions from consultation. PLAN: 1. Repeat home sleep apnea test. 2. Following plan after reading sleep study. 3. Watching weight. 4. Sleep hygiene with regular time in bed for at least 8 hours. 5. No driving if feeling any sleepiness. Thank you very much for allowing me to participate in the management of your patient. Sincerely, Louie Pacheco MD, PhD, FAASM Diplomat of [employer] Sleep Medicine Board of [employer] Janitor Head of [facility] [place] cc: Paula Perez MD, Gabriella James ANIMAL LABORATORY TECHNICIANJossie
== END ==
LOC: 3 N SLEEP 16:58
PROVIDERS: ATTEND Internal Medicine
DX: G47.30 Sleep apnea, unspecified (principal); F12.90 Cannabis use, unspecified, uncomplicated; F17.200 Nicotine dependence, unspecified, uncomplicated

== ENCOUNTER → 2025-02-16 | Outpatient (CLI) | payer OTHER ==
--- NOTE | 2025-02-18 13:47 | P.PCN ---
Description of Procedure: CLINICAL: A home sleep apnea test has been done for confirmation of possible obstructive sleep apnea-hypopnea syndrome. DESCRIPTION OF PROCEDURE: RESULTS: Recording time was 7 hours 28 minutes. Evaluation time was 7 hours 16 minutes. Evaluation time is sufficient for making conclusion about results of the test. Raw data of sleep recording has been reviewed and is adequate. Respiratory channel showed 11 apneas and 10 hypopneas. Apnea-hypopnea index was 2.9 per hour. Pulse rate in the range between minimum 69, maximum 233, average 87 by computer calculation. Lowest desaturation was 87%. IMPRESSION: 1. No significant respiratory abnormalities have been documented during home sleep apnea test. Please see other impressions from consultation. PLAN: 1. Sleep hygiene with regular time in bed for at least 8 hours. 2. I will see patient for follow up visit to discuss results of the test. 3. Watching weight. 4. No driving if feeling any sleepiness. Thank you very much for allowing me to participate in the management of your patient. Sincerely, Louie Pacheco MD, PhD, FAASM Diplomat of [employer] [place] [employer] Sleep Medicine Board of [employer] [place] [employer] Medical Billing Assistant of [facility] [place] cc: Paula Perez MD, Gabriella De La Cruz
== END ==
LOC: 3 N SLEEP 15:52
PROVIDERS: ATTEND Internal Medicine
DX: G47.33 Obstructive sleep apnea (adult) (pediatric) (principal); F17.200 Nicotine dependence, unspecified, uncomplicated